=== PATIENT | male | born 1995 | race African-American/Black ===

== ENCOUNTER 2020-01-09 03:00 | Emergency (ER) | payer BC ==
[2020-01-09] MEDS ORDERED: Lidocaine 1% PF 5 ML VIAL ONE ×2 (03:45→03:47)
== END 2020-01-09 04:39 | disposition home or self-care (01) ==
LOC: ERS 03:00
DX: S61.215A Laceration without foreign body of left ring finger without damage to nail, initial encounter (principal); W23.0XXA Caught, crushed, jammed, or pinched between moving objects, initial encounter
CPT/HCPCS: 12002

== ENCOUNTER 2023-06-12 13:08 | Emergency (ER) | payer BC, SELFPAY | END 2023-06-12 14:24 | disposition home or self-care (01) | LOC: ERS 13:08 | DX: M25.561 Pain in right knee (principal); W21.05XA Struck by basketball, initial encounter; Y93.67 Activity, basketball ==